=== PATIENT | male | born 1995 | race Two or more races ===

== ENCOUNTER 2025-03-26 17:46 | Emergency (ER) | payer OTHER ==
[~2025-03-26] VITALS: Ht 167.6 cm; Wt 79.1 kg
[2025-03-26 17:47] VITALS: BP 136/96; PULSE 95; RESP 18; TEMP 97; O2SAT 96
--- NOTE | 2025-03-26 20:43 | ED.PDOC ---
History of Present Illness HPI Comments 29-year-old male who presents in the ED with a chief complaint of anxiety onset 2 weeks. Patient he has been experiencing the 80 for the 2 weeks, has been under stress recently. Was on anxiety medication, stopped taking medication about 5 months ago. Spouse states patient has been experiencing auditory pace llucinations. Patient has been experiencing insomnia for the past 2 days. Denies SI, HI, chest pain, dizziness, headache, fever, chills, vomiting, diarrhea, dysuria, hematuria, head injury, LOC. No other symptoms or modifying factors present at this time. PHYSICAL EXAM: General: Awake, alert and oriented. No acute distress. Skin: Skin in warm, dry and intact without rashes or lesions. HEENT: The head is normocephalic and atraumatic. Conjunctivae are clear without exudates or hemorrhage. Sclera is non-icteric. Neck: Normal range of motion. No JVD. Cardiac: Regular rate Respiratory: No signs of respiratory distress. No Stridor. Extremities: Upper and lower extremities are atraumatic in appearance without deformity. Neurological: The patient is awake, alert and oriented to person, place, and time with normal speech. Speech is clear. There is no facial asymmetry. Psychiatric: Flat affect REVIEW OF SYSTEMS: General: No fever, no chills, or fatigue HEENT: No sore throat, no earache, no congestion, no neck pain. Cardiac: No chest pain. No palpitations. Lungs: No shortness of breath, no cough. GI: nausea. no vomiting, no diarrhea, no constipation, no abdominal pain : No dysuria, frequency, or urgency. No hematuria. Musculoskeletal: No joint pain , no joint swelling, no extremity edema. Skin: No rash, no itching. Neuro: No headache, no dizziness, no weakness Psych: Anxious, insomnia, auditory hallucination (And as sated in HPI) Chief Complaint: Anxiety Time Seen by MD: 19:36 Reviewed Notes: Medications, Allergies Allergies: Coded Allergies: NO KNOWN ALLERGIES (Unverified , 03/26/25) Information Source: Patient, Spouse Mode of Arrival: Ambulatory Severity: Moderate Timing: Weeks Duration: Since onset Prehospital treatment: None Past Medical History PAST MEDICAL HISTORY: Anxiety Surgical History: Denies all surgeries Family History Family History: Reviewed,noncontributory to illness, No family hx of Cancer, No family hx of DM, No family hx of Heart rob, No family hx of HTN, No family hx ofKidney rob, No family hx of Liver rob, No family hx of Lung rob, No family hx of Stroke Social History Smoker: Non-Smoker Alcohol: Denies ETOH Use Drugs: Denies Drug Use Lives In: Home Was a procedure done? Was a procedure done?: No Differential Dx Considerations may include: Anxiety, psychosis substance intoxication depression, other X-Ray, Labs, Meds, VS Vital Signs Date Time Temp Pulse Resp B/P (MAP) Pulse Ox O2 Delivery O2 Flow Rate FiO2 03/26/25 17:47 97.0 95 18 136/96 96 97.0 Time of 1ST Reevaluation: 20:39 Reevaluation 1ST: Unchanged Patient Education/Counseling: Other Family Education/Counseling: Other SEPSIS Sepsis Screen Date sepsis recognized/suspect: Mar 26, 2025 Time Sepsis recognized/suspect: 1749 Recent Procedure: No On Antibiotic Therapy: No Respiratory Rate >20: No Heart Rate >90: No Temp<36 C (96.8 F) or >38.3 C: No SBP <90 or MAP <65 mmHG: No New Acute Mental Status Change: No Is the patient on CPAP, BIPAP,: No Physician Orders * Psychiatric Consult (03/26/25 02:21) Urinalysis (03/26/25 20:41) Drug Screen (03/26/25 20:41) Soc Telemed Psych Consult (03/26/25 20:41) Vital Signs Date Time Temp Pulse Resp B/P (MAP) Pulse Ox O2 Delivery O2 Flow Rate FiO2 03/26/25 17:47 97.0 95 18 136/96 96 97.0 Departure 1 Departure Time of Disposition: 00:30 Impression: Primary Impression: Anxiety Additional Impression: Eloped from emergency department Disposition: 07 LEFT AWOL/ELOPED Condition: Stable Critical Care Note Critical Care Time?: No Stability Stability form required: No Heart Score Heart Score: Heart Score Response (Comments) Value History N/A 0 EKG N/A 0 Age N/A 0 Risk Factors N/A 0 Troponin N/A 0 Total 0 I personally scribed for TARSHA OTERO MD ([email or web address]) on 03/26/25 at 20:42. Electronically submitted by Izzy Johnston ([email or web address]). TARSHA OTERO MD Mar 26, 2025 20:42
== END 2025-03-27 01:39 | disposition left against medical advice (07) ==
LOC: ER 17:46
DX: F41.9 Anxiety disorder, unspecified (principal); R44.0 Auditory hallucinations; F43.9 Reaction to severe stress, unspecified